=== PATIENT | male | born 1970 | race Caucasian/White ===

== ENCOUNTER 2024-03-17 06:26 | Day surgery (SDC) | payer MEDICAID ==
[~2024-03-17] VITALS: Ht 185.4 cm; Wt 102.3 kg
[2024-03-17] MEDS ORDERED: BENZOCAINE 20% 50 MCG/SPRAY 57 GM TP ONE (06:27)
[2024-03-17] MEDS ORDERED: LIDOCAINE 2% 11 ML JELLY TP ONE (06:27)
[2024-03-17] MEDS ORDERED: ALBUTEROL SULFATE 2.5 MG/0.5 ML NEB SOLUTION NEB ONE (06:27)
[2024-03-17] MEDS ORDERED: LIDOCAINE 4% 50 ML SOLUTION TP ONE (06:27)
[2024-03-17] MEDS: SODIUM CHLORIDE 0.9% 1,000 ML IV ONE (07:43)
[2024-03-17] MEDS ORDERED: EPINEPHrine 1:10,000 [1 MG/10 ML] SYRINGE ONE (08:09)
[2024-03-17] MEDS ORDERED: ATROPINE SULFATE 0.1 MG/ML 10 ML SYRINGE IVP ONE (08:09)
[2024-03-17] MEDS ORDERED: NALOXONE HCL 0.4 MG/ML VIAL ONE (08:09)
[2024-03-17] MEDS ORDERED: DiphenhydrAMINE HCL 50 MG/ML VIAL ONE (08:09)
[2024-03-17] MEDS ORDERED: FLUMAZENIL 0.1 MG/ML 5 ML VIAL IVP ONE (08:09)
[2024-03-17] MEDS ORDERED: SODIUM TETRADECYL SULFATE 3% 60 MG/2 ML VIAL IVP ONE (08:09)
[2024-03-17] MEDS ORDERED: MIDAZOLAM HCL 2 MG/2 ML VIAL ONE (08:10)
[2024-03-17] MEDS ORDERED: FentaNYL CITRATE PF 100 MCG/2 ML VIAL ONE (08:10)
[2024-03-17] MEDS ORDERED: CYCL-448 PO (09:14)
[2024-03-17] MEDS ORDERED: LOSA-381 PO (09:14)
[2024-03-17] MEDS ORDERED: CHOL400T56 PO (09:14)
[2024-03-17] MEDS ORDERED: IBUP-1493 PO (09:14)
[2024-03-17] MEDS ORDERED: RILU50TA14 PO (09:14)
[2024-03-17] MEDS ORDERED: ACET-3385 PO (09:14)
[2024-03-17] MEDS ORDERED: MECO10006 SQ (09:14)
[2024-03-17] MEDS ORDERED: MethylPREDNISolone SOD SUCC 125 MG/2 ML VIAL ONE (09:55)
[2024-03-17 10:10] VITALS: PULSE 103; RESP 20; O2SAT 96
[2024-03-17] MEDS: MethylPREDNISolone SOD SUCC 125 MG/2 ML VIAL IVP ONE (10:21)
[2024-03-17] MEDS ORDERED: MONT-40 PO (11:44)
[2024-03-17] MEDS ORDERED: FAMO20 PO (11:44)
[2024-03-17] MEDS ORDERED: ALBU18HF12 IH (11:44)
[2024-03-17] MEDS ORDERED: FLUT16H NASAL (11:44)
== END 2024-03-17 11:25 | disposition home or self-care (01) ==
LOC: SURGERY 06:26
PROVIDERS: ATTEND Internal Medicine Critical Care Medicine
DX: J38.4 Edema of larynx (principal); B37.0 Candidal stomatitis; Z98.890 Other specified postprocedural states; I10 Essential (primary) hypertension; Z79.899 Other long term (current) drug therapy; G12.21 Amyotrophic lateral sclerosis
CPT/HCPCS: 31623; 87206; 87101; 87220; 87070; 88108; 31624; 94640; 71045; 87015; J3010; J2250; J2919; J0171; J0461; J1200; J2310; J3490; J7613; Z7610